=== PATIENT | female | born 1945 | race Caucasian/White ===

== ENCOUNTER → 2019-02-06 | Outpatient (CLI) | payer MEDICARE, OTHER ==
--- NOTE | 2019-02-06 19:10 | Diagnostic Imaging Report ---
EXAM: Renal Ultrasound INDICATION: Recurrent UTI. COMPARISON: None TECHNIQUE: Transverse and longitudinal images of the kidneys and bladder were obtained. FINDINGS: Right Kidney: Size: 11.5 x 4.2 x 4.3 cm Echogenicity: Normal Parenchymal thickness: Normal. 1.3 cm. Collecting system: No hydronephrosis Stones: None Cyst/Mass: 1.2 x 0.6 x 1.7 cm simple cyst in the interpolar region. Left Kidney: Size: 6.0 x 3.4 x 2.8 cm Echogenicity: Normal Parenchymal thickness: Normal. 1.0 cm. Areas of questionable scarring. Collecting system: No hydronephrosis Stones: None Cyst/Mass: 1.0 x 1.2 x 1.0 cm simple cyst in the inferior pole. Bladder: Normal IMPRESSION: Left kidney smaller than the right kidney with areas of scarring, likely related to recurrent infection. Signed by: Dr. Shekhar Seth M.D. on 02/06/2019 7:06 PM
== END ==
LOC: US 13:26
PROVIDERS: ATTEND Urology
DX: N39.0 Urinary tract infection, site not specified (principal)
CPT/HCPCS: 76770

== ENCOUNTER 2019-11-02 08:55 | Inpatient (IN) | payer MEDICARE, OTHER ==
[~2019-11-02] VITALS: Ht 167.6 cm; Wt 67.1 kg
--- OUTSIDE RECORDS SUMMARY | 2019-11-02 08:59 | XMS REPORT ---
Author Author [facility] Address Unknown Phone Unavailable Care Team Providers Care Fire Alarm Repairer Name Role Phone Kalyn REED Unavailable Unavailable Problems This patient has no known problems. Allergies, Adverse Reactions, Alerts This patient has no known allergies or adverse reactions. Medications This patient has no known medications. Encounters Start Date/Time End Date/Time Encounter Type Admission Type Attending [facility] Care Facility Care Department Encounter ID 2019-05-04 22:14:00 2019-05-04 22:14:00 Emergency E [id number] 2019-04-08 19:51:00 2019-04-08 19:51:00 Outpatient [id number] Results Test Description Test Time Test Comments Text Results Atomic Results Result Comments US RENAL RETROPERITONEAL COMP 2019-02-06 19:01:00 [place] [address] Patient Name: RENEE OCHOA MR #: [id number] : 1945 Age/Sex: 73/F Req #: [id number] Adm Physician: Ordered by: YOSELIN REED MD Report #: [id number] Location: Room/Bed: Procedure: [id number] US/US RENAL RETROPERITONEAL COMP Exam Date: 02/06/19 Exam Time: 1421 REPORT STATUS: Signed EXAM: Renal Ultrasound INDICATION: Recurrent UTI. COMPARISON: None TECHNIQUE: Transverse and longitudinal images of the kidneys and bladder were obtained. FINDINGS: Right Kidney: Size: 11.5 x 4.2 x 4.3 cm Echogenicity: Normal Parenchymal thickness: Normal. 1.3 cm. Collecting system: No hydronephrosis Stones: None Cyst/Mass: 1.2 x 0.6 x 1.7 cm simple cyst in the interpolar region. Left Kidney: Size: 6.0 x 3.4 x 2.8 cm Echogenicity: Normal Parenchymal thickness: Normal. 1.0 cm. Areas of questionable scarring. Collecting system: No hydronephrosis Stones: None Cyst/Mass: 1.0 x 1.2 x 1.0 cm simple cyst in the inferior pole. Bladder: Normal IMPRESSION: Left kidney smaller than the right kidney with areas of scarring, likely related to recurrent infection. Signed by: Dr. Shan Seth M.D. on 02/06/2019 7:06 PM Dictated By: SHAN SETH MD 05 Transcribed By: PAULA on 02/06/191905 COPY TO: YOSELIN REED MD
--- OUTSIDE RECORDS SUMMARY | 2019-11-02 08:59 | XMS REPORT | Summary of Care ---
Author Author DARÍO JACOBS M.D. Organization Unknown Address [facility] Phone Unavailable Care Team Providers Care Mounter [employer]os Name Role Phone DARÍO JACOBS M.D. Unavailable Unavailable VIET VERDIN, DARRICK Unavailable Unavailable ROBINSON VERDIN, ONDINA Almeida Unavailable Unavailable TINO VERDIN MA, LUZ De Jesus Unavailable Unavailable Darío Jacobs MD Unavailable Unavailable Unavailable Unavailable Functional Status Name Dates Details Functional status health issues are not documented Status: Name Dates Details Cognitive status health issues are not documented Status: Problems Name Dates Details Primary localized osteoarthritis of left pelvic region and thigh (715.15, M16.12) Status: Active Acute hip pain (719.45, M25.559) Status: Active Artificial joint pain (996.77, T84.84XA) Status: Active History of knee replacement (V43.65, Z96.659) Status: Active Femoral neck fracture (820.8, S72.009A) Status: Active History of hip replacement (V43.64, Z96.649) Status: Active S/P hardware removal (V45.89, Z98.890) Status: Active Aftercare following joint replacement (V54.81, Z47.1) Status: Active Asymmetric SNHL (sensorineural hearing loss) (389.16, H90.5) Status: Active Closed fracture of neck of right femur with routine healing, subsequent encounter (V54.13, S72.001D) Status: Active Right hip pain (719.45, M25.551) Status: Active Presence of right artificial hip joint (V43.64, Z96.641) Status: Active Closed fracture of proximal end of right femur, initial encounter (820.8, S72.001A) Status: Active Medications Name Dates Details Calcium TABS Active Vitamin D TABS * Refills: 0 Active Vitamin B-1 TABS * Refills: 0 Active Vitamin C TABS * Refills: 0 Active Cranberry CAPS * Refills: 0 Active Aspirin 325 MG Oral Tablet TAKE 1 TABLET TWICE DAILY for 6 weeks * Quantity: 84 Refills: 0 DARÍO JACOBS M.D. * Start : 23-Jun-2015 Active Metoprolol Tartrate TABS * Refills: 0 Active Meclizine HCl TABS * Refills: 0 Active Promethazine HCl - 25 MG Oral Tablet TAKE 1 TABLET EVERY 4 TO 6 HOURS NEEDED FOR NAUSEA. * Quantity: 40 Refills: 0 DARÍO JACOBS M.D. * Start : 24-May-2019 Active Allergies and Adverse Reactions Name Dates Details Ambien (Allergy) Status: Active fentanyl (Allergy) Status: Active TETANUS (Allergy) Status: Active Past Medical History Name Dates Details History of arthritis (V13.4, Z87.39) Status: Resolved History of hay fever (V12.69, Z87.09) Status: Resolved History of infection (V12.00, Z86.19) Status: Resolved History of low back pain (V13.59, Z87.39) Status: Resolved History of pneumonia (V12.61, Z87.01) Status: Resolved History of S/P hardware removal (V45.89, Z98.890) Status: Resolved Procedures Procedure Dates Details History of Section Completed History of Knee Surgery Completed History of Hip Surgery Completed Immunization Name Dates Details Immunizations not documented Family History Name Dates Details Family history of malignant neoplasm (V16.9, Z80.9) Status: Active Family history of Status: Active Social History Name Dates Details - Status: Name Dates Details Smoker. current status unknown Vital Signs Date Test Result Details No Known Vitals to report Results Date Description Value Details Results not documented Plan of Care Name Dates Details Planned Observations Planned Goals not documented Planned Encounters Appointment; DARÍO JACOBS M.D. On: 18-Sep-2019 13:15 Interventions Provided Labs/Procedures/Imaging* [U] XRAY HIP UNILATERAL MIN 2 VWS RIGHT 93910; Done: 26 Jun 2019 Instructions* Patient Specific Education Given; Done: 26 Jun 2019 Plan* The patient has done well with protected weightbearing. I would like her to continue with this for 2 more months. I will see her at the time of the new x-ray. We will likely transition her tello assist device and may put her in physical therapy. * Patient Education/Instructions: * Patient Education Provided * Reassurance * Counseling Provided - Discussed with Family/Patient * Family/Patient given opportunity to ask questions. * Family/Patient Verbalized Understanding. * Family/Patient informed will continue to monitor. * Follow Up: * Return to the clinic in 2 months or as needed. * x-ray(s) needed at next visit. * X-rays to be completed at next visit: Hip * Hip Xrays: AP and lateral, AP pelvis view of the right hip. Instructions Name Dates Details Instructions not documented Encounters Appointment; TAY DURAN Encounter Diagnosis: Problem not documented On: 01-Apr-2019 13:30 Appointment; ONDINA BOWERS M.D. Encounter Diagnosis: Problem not documented On: 01-Apr-2019 14:00 Appointment; DARÍO JACOBS M.D. Encounter Diagnosis: Problem not documented On: 24-May-2019 9:15 Appointment; DARÍO JACOBS M.D. Encounter Diagnosis: Problem not documented On: 29-May-2019 13:00 Appointment; DARÍO JACOBS M.D. Encounter Diagnosis: Problem not documented On: 26-Jun-2019 11:00
[2019-11-02] MEDS ORDERED: SODIUM CHLORIDE 0.9% 1000ML 1,000 ML IV STA (09:16)
[2019-11-02 09:42] LABS: BASOPHILS % 0.1 % (0.0-1.0); EOSINOPHILS # (AUTO) 0.1 (0.0-0.4); EOSINOPHILS % 0.7 % (0.0-6.0); HEMATOCRIT 38.5 % (34.2-44.1); HEMOGLOBIN 13.3 g/dL (12.0-16.0); LYMPHOCYTES # (AUTO) 1.9 (1.0-3.2); LYMPHOCYTES % 17.3 % (18.0-39.1); MEAN CORPUSCULAR HEMOGLOBIN 36.2 pg (28-32); MEAN CORPUSCULAR HGB CONC 34.5 g/dL (31-35); MEAN CORPUSCULAR VOLUME 104.9 fL (81-99); MONOCYTES # (AUTO) 0.5 (0.2-0.8); MONOCYTES % 4.2 % (4.4-11.3); NEUTROPHILS # (AUTO) 8.4 (2.1-6.9); NEUTROPHILS % 77.3 % (38.7-80.0); PLATELET COUNT 247 x10e3/uL (140-360); RED BLOOD COUNT 3.67 x10e6/uL (3.6-5.1); RED CELL DISTRIBUTION WIDTH 13.2 % (11.7-14.4)
[2019-11-02 09:48] LABS: INR 0.8; PROTHROMBIN TIME 11.5 seconds (11.9-14.5)
[2019-11-02 09:53] LABS: BILIRUBIN,URINE NEGATIVE (NEGATIVE); CLARITY,URINE CLEAR (CLEAR); COLOR,URINE YELLOW (YELLOW); KETONES,URINE NEGATIVE (NEGATIVE); LEUKOCYTE ESTERASE ,URINE NEGATIVE (NEGATIVE); NITRITE,URINE NEGATIVE (NEGATIVE); PROTEIN,URINE DIPSTICK NEGATIVE (NEGATIVE); URINE UROBILINOGEN 0.2 mg/dL (0.2 - 1)
[2019-11-02 09:54] LABS: AMPHETAMINES SCREEN,URINE NEGATIVE (NEGATIVE); BENZODIAZEPINES SCREEN,URINE NEGATIVE (NEGATIVE); PHENCYCLIDINE SCREEN,URINE NEGATIVE (NEGATIVE)
[2019-11-02 09:59] LABS: ALBUMIN 3.3 g/dL (3.5-5.0); ANION GAP 17.1 mmol/L (8-16); CALCIUM 10.1 mg/dL (8.4-10.2); CREATININE, SERUM 0.96 mg/dL (0.57-1.11); MAGNESIUM 1.6 MG/DL (1.3-2.1); POTASSIUM 4.1 mmol/L (3.5-5.1)
[2019-11-02 10:00] LABS: PARTIAL THROMBOPLASTIN TIME 30.9 seconds (23.8-35.5)
[2019-11-02 10:08] LABS: BACTERIA,URINE FEW /HPF; EPITHELIAL CELLS,URINE FEW /LPF; RBC,URINE 0-5 /HPF (0-5); WBC,URINE (MAN) 0-5 /HPF (0-5)
--- NOTE | 2019-11-02 10:17 | Diagnostic Imaging Report ---
EXAMINATION: CT of the lumbar spine HISTORY: Bilateral lower extremity weakness since yesterday. COMPARISON: None available TECHNIQUE: Multidetector helical axial images were obtained without contrast from L1 to S1. The images were reconstructed using bone and soft tissue algorithms and were viewed in axial, sagittal, and coronal planes. Dose modulation, iterative reconstruction, and/or weight based adjustment of the mA/kV was utilized to reduce the radiation dose to as low as reasonably achievable. FINDINGS: Alignment: Mild dextroscoliosis centered at L4-5. Mild right lateral spondylolisthesis at L4-5. Minimal anterolisthesis at L2-3 and L3-L4. Vertebral bodies: Diffuse decreased bone marrow density, otherwise normal height, normal acute displaced fractures. Shallow Schmorl's nodes T12-L2.. Paraspinal muscles: Posterior paraspinal musculature atrophy. Possible small scars in the left kidney.. Intervertebral disks: Decreased disc height, symmetric and asymmetric disc bulges and vacuum phenomena from T12-L1 to L5-S1. L1-L2: Disc bulge and small central disc protrusion, ligamenta flava thickening and facet arthrosis. Mild canal and moderate foraminal stenoses mainly in the right side. L2-L3: Spondylosis, ligamenta flava thickening and facet arthroses. Mild spinal canal and right foraminal narrowing. L3-L4: Spondylosis, ligamenta flava thickening and facet arthrosis. Mild canal and moderate foraminal stenosis on the left side. L4-L5: Spondylosis, ligamenta flava thickening and facet arthrosis. Moderate canal and moderate foraminal stenosis. L5-S1: Spondylosis and facet arthrosis. Mild left and moderate right foraminal stenosis. Sacrum: Partially visualized age-indeterminate probably chronic minimally displaced fracture of the S3 vertebrae. IMPRESSION: 1. No acute lumbar spine fractures or dislocations. 2. Diffuse osteoporosis. 3. Multilevel chronic degenerative canal and foraminal stenoses are described. 4. Partially visualized age-indeterminate likely chronic sacral fracture, correlation with physical examination for point of tenderness is recommended, comparison to prior studies if available is advised, otherwise a pelvic CT without contrast is recommended for further evaluation. Note is made of acute traumatic thecal sac/cauda equina, vascular or ligamentous injury cannot adequately be assessed with CT. Signed by: Dr. Ana Maria Leon M.D. on 11/02/2019 10:13 AM
[2019-11-02 10:19] LABS: CREATINE KINASE MB 2.8 ng/mL (0-5.0); THYROID STIMULATING HORMONE 0.961 uIU/mL (0.350-4.940)
[2019-11-02 10:20] LABS: ERYTHROCYTE SEDIMENTATION RATE 23 mm/hr (0-20)
--- NOTE | 2019-11-02 10:23 | Diagnostic Imaging Report ---
EXAMINATION: Head and cervical spine CT without contrast. HISTORY: Generalized weakness, vertigo since yesterday COMPARISON: None available TECHNIQUE: Multidetector axial images were obtained without contrast from the foramen magnum to the vertex and through the cervical spine. The images were reconstructed using brain and bone algorithms. Thin section brain images were reformatted into coronal and sagittal planes. Dose modulation, iterative reconstruction, and/or weight based adjustment of the mA/kV was utilized to reduce the radiation dose to as low as reasonably achievable. HEAD CT FINDINGS: Skull/scalp: No lytic or blastic lesions. No fractures. Parenchyma: Few scattered and periventricular white matter hypodensities, most likely age related minimal chronic microvascular ischemic changes. No mass, hemorrhage or CT evidence of acute vascular insult. Brain volume: Normal for age. Ventricles: No hydrocephalus or displacement. Arteries: No density suggestive of thrombus. Dural sinuses: No abnormal density. Extra-axial spaces: No abnormal density. Foramen magnum: No mass, Chiari malformation, or basilar invagination. Sella: No obvious mass. Paranasal/mastoid sinuses: Imaged portions unremarkable. CERVICAL SPINE CT FINDINGS: Alignment:Normal alignment and lordosis. Soft tissues: Normal. Vertebrae: Normal height and density. No acute fracture, infection or neoplasm. Degenerative changes: C1-C2: Normal C2-C3: Normal C3-C4: Small disc osteophyte complex formation and uncovertebral and facet arthrosis. Minimal left foramina narrowing. C4-C5: Small disc osteophyte complex formation, mild uncovertebral and facet hypertrophy. No canal or foraminal stenosis. C5-C6: Asymmetric right disc osteophyte complex formation, uncovertebral and facet arthrosis. Moderate right and mild left foraminal stenosis. Minimal canal narrowing. C6-C7: Asymmetric left disc osteophyte complex formation, bilateral uncovertebral and to a lesser extent facet arthrosis. Mild right and moderate left foraminal stenosis. C7-T1: Minimal anterolisthesis, otherwise no abnormalities. IMPRESSION: Head CT: 1. No acute abnormalities, particularly no hemorrhage or acute cortical infarct. 2. Mild age-related chronic microvascular ischemic changes. Cervical spine CT: 1. No acute fractures or dislocations. 2. Chronic degenerative changes as described. Note: Acute post traumatic spinal cord, vascular or ligamentous injury cannot adequately be assessed with CT. Signed by: Dr. Ana Maria Leon M.D. on 11/02/2019 10:20 AM
--- NOTE | 2019-11-02 10:29 | Diagnostic Imaging Report ---
EXAMINATION: CHEST SINGLE (PORTABLE) INDICATION: Bilateral lower extremity weakness. COMPARISON: None FINDINGS: TUBES and LINES: None. LUNGS: Lungs are well inflated. There is consolidative opacity within the right lower lung. No evidence of pulmonary edema. PLEURA: No pleural effusion or pneumothorax. Right-sided likely skinfold. HEART AND MEDIASTINUM: The cardiomediastinal silhouette is unremarkable. BONES AND SOFT TISSUES: No acute osseous abnormality. UPPER ABDOMEN: No free air under the diaphragm. IMPRESSION: Consolidative opacity within the right lower lung, which may reflect pneumonia in the appropriate clinical setting. Recommend follow-up chest radiograph in 6-8 weeks to assess for resolution. Signed by: Dr. Landen Sanchez MD on 11/02/2019 10:26 AM
[2019-11-02] MEDS ORDERED: THIAMINE HCL INJ 100 MG/ML 2ML VIAL IV ONE (10:45)
[2019-11-02] MEDS ORDERED: MULTIVITAMINS/MINERALS TAB PO ONE ×2 (10:45→12:00)
--- NOTE | 2019-11-02 12:03 | Diagnostic Imaging Report ---
EXAM: CT Chest without contrast INDICATION: Query pneumonia. COMPARISON: Chest radiograph 11/02/2019. TECHNIQUE: Chest was scanned utilizing a multidetector helical scanner from the lung apex through the level of the adrenal glands without administration of IV contrast. Coronal and sagittal reformations were obtained. Routine protocol was performed. IV CONTRAST: None. RADIATION DOSE: Total DLP: 955.2 mGy*cm Estimated effective dose: (DLP x 0.014 x size factor) mSv COMPLICATIONS: None FINDINGS: LINES/ TUBES: None. LUNGS AND AIRWAYS: There is a rounded masslike consolidative opacity within the right lower lobe, measuring up to 5.7 cm. There are curvilinear lucencies within this opacity, likely represent focal bronchiectasis. There is an adjacent nodular opacity in the right lower lobe measuring 2.1 cm. There are bilateral peripheral interstitial opacities. Scattered 1 to 2 mm peripheral groundglass nodular opacities. There are mild paraseptal emphysematous changes of the lungs. Prominent septated cyst in the right upper lobe, measuring up to 3.6 cm, which may reflect sequela of prior infection. Biapical parenchymal opacity, suggestive of prior granulomatous disease. There is a 0.8 cm ground glass nodular opacity in the dependent right upper lobe on series 3, image 56. PLEURA: The pleural spaces are clear. HEART AND MEDIASTINUM: The thyroid gland is normal. Mildly enlarged 1.6 cm subcarinal lymph node. Coronary atherosclerosis. Moderate atherosclerosis of the thoracic aorta and branch vessels. No cardiomegaly or pericardial effusion. UPPER ABDOMEN: Limited non-contrast views of the upper abdomen are unremarkable. BONES: No acute osseous abnormality. Old healed right lower rib fracture. SOFT TISSUES: Unremarkable. IMPRESSION: Masslike 5.7 cm consolidation in the right lower lobe with adjacent to 2.1 cm nodular opacity. Findings may represent malignancy versus focal pneumonia. Nonspecific mildly enlarged 1.6 cm subcarinal lymph node. Recommend close interval follow-up chest CT in 3 months for further evaluation. If there is low clinical concern for pneumonia, then a PET-CT or biopsy is suggested. Mild paraseptal emphysematous changes. Scattered groundglass nodular opacities, which may infectious or inflammatory. These can be assessed on follow-up CT. Mild peripheral interstitial opacities, suggestive of pulmonary fibrosis. Signed by: Dr. Landen Sanchez MD on 11/02/2019 11:59 AM
[2019-11-02] MEDS: CEFTRIAXONE SOD 1 GM/NS 50 ML 50 ML IV SCH ×2 (12:09→23:29)
--- NOTE | 2019-11-02 12:11 | Diagnostic Imaging Report ---
EXAM: CT Pelvis WITHOUT contrast INDICATION: Fall, possible sacral fracture COMPARISON: Lumbar spine CT 11/02/2019. TECHNIQUE: Pelvis were scanned utilizing a multidetector helical scanner from the iliac crest to the pubic symphysis without administration of IV contrast. Coronal and sagittal reformations were obtained. Routine protocol was performed. IV CONTRAST: None. ORAL CONTRAST: None RADIATION DOSE: Total DLP: 955.2. mGy*cm Estimated effective dose: (DLP x 0.015 x size factor) mSv COMPLICATIONS: None FINDINGS: BONES: Again noted is a well-corticated nondisplaced, likely chronic fracture of the S3 vertebral body (axial series 8, image 47, and coronal series 901, image 69). No evidence of malalignment. Please refer to the same day CT for details of lumbar spine findings. Partially seen right total hip arthroplasty with intact visualized hardware. SOFT TISSUES: Mild subcutaneous edema in the left lateral thigh. LINES and TUBES: None. GI TRACT: Partially visualized. No abnormal distention, wall thickening, or evidence of bowel obstruction. Appendix is normal. Fatty infiltration to the wall of the cecum, sigmoid colon, and rectum may reflect sequela of prior inflammation. Sigmoid colonic diverticulosis without CT evidence of diverticulitis. PELVIC ORGANS/BLADDER: Unremarkable. LYMPH NODES: No lymphadenopathy. VESSELS: Extensive atherosclerotic calcifications of the distal abdominal aorta and iliac arteries. PERITONEUM / RETROPERITONEUM: No free air or fluid. IMPRESSION: Well-corticated, nondisplaced, likely chronic fracture of the S3 vertebral body. No overlying soft tissue edema. Suggest correlation with point tenderness. Mild subcutaneous edema in the left lateral thigh. Sigmoid colonic diverticulosis without CT evidence of diverticula disease. Signed by: Dr. Landen Sanchez MD on 11/02/2019 12:08 PM
[2019-11-02] MEDS: METRONIDAZOLE 500MG/NS 100ML 100 ML IV SCH ×2 (12:50→20:48)
[2019-11-02] MEDS ORDERED: DEXTROSE 5%/0.9% SOD CHL 1,000 ML IV ONE (13:00)
--- NOTE | 2019-11-02 13:11 | NUR ---
LUNCH MEAL TRAY ORDERED
[2019-11-02] MEDS: AZITHROMYCIN 500MG/NS 250 ML 250 ML IV SCH (14:09)
--- NOTE | 2019-11-02 14:11 | NUR ---
received report from CIGARETTE MACHINES MECHANIC; awaiting arrival of pt to unit.
--- NOTE | 2019-11-02 14:20 | NUR ---
pt arrived on unit, awake, alert, no signs of distress. will continue to monitor.
[2019-11-02 14:28] VITALS: BP 134/66
[2019-11-02 14:31] VITALS: BP 134/66
[2019-11-02 16:10] VITALS: BP 161/72
[2019-11-02] MEDS ORDERED: MECLIZINE HCL12.5 MG PO (16:15)
[2019-11-02] MEDS ORDERED: METOPROLOL SUCC25 MG PO (16:15)
--- NOTE | 2019-11-02 17:56 | NUR ---
pt accidentally pulled out her IV; will place another one.
[2019-11-02] MEDS: ONDANSETRON HCL INJ 2MG/ML 2ML 2 MG/ML VIAL IV PRN ×2 (18:22→23:54)
[2019-11-02 19:12] LABS: CREATINE KINASE MB 2.3 ng/mL (0-5.0)
--- NOTE | 2019-11-02 19:13 | NUR ---
Received bedside report from day nurse. Patient resting in bed, no s/s of distress at this time. All safety measures in place. Will continue to monitor.
[2019-11-02 19:34] VITALS: BP 122/58
--- NOTE | 2019-11-02 20:01 | NUR ---
Patient c/o back pain, saying that she cannot take ibuprofen because it gives her an upset stomach. Says that she usually takes Tylenol at home. Called contract graphic designer provider for Dr. Sanchez and obtained orders for Tylenol.
[2019-11-02] MEDS: ACETAMINOPHEN 325 MG TAB PO PRN (20:48)
[2019-11-02 21:28] VITALS: BP 122/58
[2019-11-03] VITALS (7 sets, daily range): BP systolic 111–139; BP diastolic 60–81
--- NOTE | 2019-11-03 02:31 | NUR ---
Third Q8 cardiac markers drawn as ordered and dropped off at lab.
[2019-11-03] MEDS: ACETAMINOPHEN 325 MG TAB PO PRN ×2 (03:11→09:26)
[2019-11-03 03:16] LABS: CREATINE KINASE MB 1.2 ng/mL (0-5.0)
[2019-11-03] MEDS: METRONIDAZOLE 500MG/NS 100ML 100 ML IV SCH ×3 (05:17→21:05)
[2019-11-03 06:21] LABS: BASOPHILS % 0.4 % (0.0-1.0); EOSINOPHILS # (AUTO) 0.2 (0.0-0.4); EOSINOPHILS % 2.5 % (0.0-6.0); HEMATOCRIT 35.2 % (34.2-44.1); HEMOGLOBIN 12.1 g/dL (12.0-16.0); LYMPHOCYTES # (AUTO) 1.5 (1.0-3.2); LYMPHOCYTES % 19.1 % (18.0-39.1); MEAN CORPUSCULAR HEMOGLOBIN 36.3 pg (28-32); MEAN CORPUSCULAR HGB CONC 34.4 g/dL (31-35); MEAN CORPUSCULAR VOLUME 105.7 fL (81-99); MONOCYTES # (AUTO) 0.6 (0.2-0.8); NEUTROPHILS # (AUTO) 5.5 (2.1-6.9); NEUTROPHILS % 69.7 % (38.7-80.0); PLATELET COUNT 192 x10e3/uL (140-360); RED BLOOD COUNT 3.33 x10e6/uL (3.6-5.1); RED CELL DISTRIBUTION WIDTH 13.3 % (11.7-14.4)
[2019-11-03 06:47] LABS: ALANINE AMINOTRANSFERASE 6 IU/L (0-55); ALBUMIN 2.6 g/dL (3.5-5.0); ALKALINE PHOSPHATASE 83 IU/L (40-150); ANION GAP 13.8 mmol/L (8-16); BLOOD UREA NITROGEN 13 mg/dL (7-26); BUN/CREATININE RATIO 16 (6-25); CALCIUM 9.3 mg/dL (8.4-10.2); CARBON DIOXIDE 23 mmol/L (22-29); CHLORIDE 105 mmol/L (98-107); CHOL/HDL RATIO 2.4 (3.0-3.6); CHOLESTEROL 139 MD/DL (0-199); CREATINE KINASE 59 IU/L (29-168); CREATININE, SERUM 0.82 mg/dL (0.57-1.11); EST GLOMERULAR FILTRATION RATE > 60 ML/MIN (60-); GLUCOSE 143 mg/dL (74-118); HDL CHOLESTEROL 59 MG/DL (40-60); LDL CHOLESTEROL 68 MG/DL (60-130); MAGNESIUM 1.4 MG/DL (1.3-2.1); POTASSIUM 3.8 mmol/L (3.5-5.1); SODIUM 138 mmol/L (136-145); TRIGLYCERIDES 62 MG/DL (0-149)
--- NOTE | 2019-11-03 07:04 | NUR ---
walking rounds completed, change of shift report received from night shift supervisor RN. pt in stable condition.
[2019-11-03] MEDS: ONDANSETRON HCL INJ 2MG/ML 2ML 2 MG/ML VIAL IV PRN ×3 (07:23→21:04)
[2019-11-03] MEDS: AZITHROMYCIN 500MG/NS 250 ML 250 ML IV SCH (08:13)
[2019-11-03] MEDS: MULTIVITAMINS/MINERALS TAB PO SCH (08:14)
[2019-11-03] MEDS: THIAMINE HCL INJ 100 MG/ML 2ML VIAL IV SCH (08:16)
[2019-11-03] MEDS: PANTOPRAZOLE 40 MG 10ML VIAL IV SCH (08:16)
[2019-11-03] MEDS: CEFTRIAXONE SOD 1 GM/NS 50 ML 50 ML IV SCH ×2 (12:05→23:45)
[2019-11-03] MEDS: IBUPROFEN 600 MG TAB PO PRN (15:46)
[2019-11-03] MEDS ORDERED: HYDRALAZINE HCL 20 MG/ML VIAL IV PRN (19:30)
[2019-11-03] MEDS ORDERED: MECLIZINE HCL 12.5 MG TAB PO PRN (19:30)
--- NOTE | 2019-11-03 20:00 | NUR ---
INITIAL ASSESSMENT COMPLETE, PT IN BED, LEFT HAD RED FROM IV MEDS, NO SWELLING NOTED, BSC AT BEDSIDE, CALL LIGHT IN REACH, NO SIGNS OF DISTRESS OR DETOX, VS STABLE
[2019-11-03] MEDS ORDERED: SODIUM CHLORIDE 0.9% 500ML 500 ML ONE (22:30)
[2019-11-03] MEDS: ALBUTEROL/IPRATROPIUM 3 ML NEB NEB SCH (23:10)
[2019-11-04] VITALS (8 sets, daily range): BP systolic 128–150; BP diastolic 59–70
[2019-11-04] MEDS: ALBUTEROL/IPRATROPIUM 3 ML NEB NEB SCH ×3 (03:02→11:00)
[2019-11-04] MEDS: METRONIDAZOLE 500MG/NS 100ML 100 ML IV SCH ×3 (06:00→21:30)
[2019-11-04 07:00] LABS: BASOPHILS % 0.1 % (0.0-1.0); EOSINOPHILS # (AUTO) 0.4 (0.0-0.4); EOSINOPHILS % 4.8 % (0.0-6.0); HEMATOCRIT 35.5 % (34.2-44.1); HEMOGLOBIN 11.8 g/dL (12.0-16.0); LYMPHOCYTES # (AUTO) 1.3 (1.0-3.2); LYMPHOCYTES % 15.5 % (18.0-39.1); MEAN CORPUSCULAR HEMOGLOBIN 35.6 pg (28-32); MEAN CORPUSCULAR HGB CONC 33.2 g/dL (31-35); MEAN CORPUSCULAR VOLUME 107.3 fL (81-99); MONOCYTES # (AUTO) 0.6 (0.2-0.8); MONOCYTES % 7.3 % (4.4-11.3); NEUTROPHILS % 71.9 % (38.7-80.0); PLATELET COUNT 192 x10e3/uL (140-360); RED BLOOD COUNT 3.31 x10e6/uL (3.6-5.1); RED CELL DISTRIBUTION WIDTH 13.2 % (11.7-14.4)
[2019-11-04 07:27] LABS: ANION GAP 10.9 mmol/L (8-16); BLOOD UREA NITROGEN 12 mg/dL (7-26); BUN/CREATININE RATIO 16 (6-25); CALCIUM 9.8 mg/dL (8.4-10.2); CARBON DIOXIDE 25 mmol/L (22-29); CHLORIDE 102 mmol/L (98-107); CREATININE, SERUM 0.76 mg/dL (0.57-1.11); EST GLOMERULAR FILTRATION RATE > 60 ML/MIN (60-); GLUCOSE 109 mg/dL (74-118); MAGNESIUM 1.3 MG/DL (1.3-2.1); PHOSPHORUS 2.4 MG/DL (2.3-4.7); POTASSIUM 3.9 mmol/L (3.5-5.1); SODIUM 134 mmol/L (136-145)
--- NOTE | 2019-11-04 07:35 | NUR ---
PATIENT SITTING UP IN BED WATCHING TV, NO DISTRESS NOTED. BED I N LOWER POSITION, CALL LIGHT AT REACH.
[2019-11-04] MEDS: METOPROLOL SUCCINATE 25 MG TAB XL PO SCH ×2 (09:00→17:00)
[2019-11-04] MEDS: GUAIFENESIN 600MG/DEXTROMETHORPHAN 30MG TABSR PO SCH ×2 (09:48→17:06)
[2019-11-04] MEDS: MULTIVITAMINS/MINERALS TAB PO SCH (09:48)
[2019-11-04] MEDS: PANTOPRAZOLE 40 MG 10ML VIAL IV SCH (09:48)
[2019-11-04] MEDS: AZITHROMYCIN 500MG/NS 250 ML 250 ML IV SCH (09:48)
[2019-11-04] MEDS: THIAMINE HCL INJ 100 MG/ML 2ML VIAL IV SCH (09:48)
[2019-11-04] MEDS: ONDANSETRON HCL INJ 2MG/ML 2ML 2 MG/ML VIAL IV PRN ×3 (11:15→23:49)
[2019-11-04] MEDS: ACETAMINOPHEN 325 MG TAB PO PRN ×2 (11:15→23:49)
[2019-11-04] MEDS: CEFTRIAXONE SOD 1 GM/NS 50 ML 50 ML IV SCH ×2 (13:20→23:45)
[2019-11-04] MEDS ORDERED: MAGNESIUM SULFATE 2GM/50ML 50 ML IV ONE (15:00)
--- NOTE | 2019-11-04 15:18 | NUR ---
PATIENT AMBULATED IN HALLWAY WITH PHYSICAL THERAPY. NO DISTRESS NOTED. BACK IN BED WITH CALL LIGHT AT REACH.
[2019-11-04] MEDS ORDERED: LOPERAMIDE HCL 2 MG CAP PO ONE (16:15)
[2019-11-04] MEDS ORDERED: LOPERAMIDE HCL 2 MG CAP PO PRN (16:15)
--- NOTE | 2019-11-04 16:22 | Consultation ---
DATE OF CONSULTATION: Pulmonary Critical Care Consultation CHIEF COMPLAINT: Lung mass. HISTORY OF PRESENT ILLNESS: The patient is a 73-year-old woman. She has a history of vertigo and prior falls. She fell several years ago and fractured hip and ribs. She fell last summer and fractured another rib. Since falling over the summer, she has had decreased appetite. She has lost about 15 pounds. She came to the ER. She had a CT scan of her abdomen and pelvis, head, and chest after falling. The CT scan of the chest showed a possible right lower lobe mass and a subcarinal lymph node. The patient denies any fevers. She has minimal cough. She does not have phlegm production. She has had pneumonia in the past once at age 2 and once in 2017, but has never had tuberculosis or any other lung infections. PAST MEDICAL HISTORY: 1. Vertigo. 2. Atrial fibrillation. PAST SURGICAL HISTORY: 1. Status post right hip surgery. 2. History of . 3. History of prior rib fractures. SOCIAL HISTORY: The patient smokes about half a pack a day. She does drink socially. She previously worked as a dental hygienist. FAMILY HISTORY: Father from lung cancer. ALLERGIES: THE PATIENT IS ALLERGIC TO TETANUS VACCINATIONS WELL FENTANYL. REVIEW OF SYSTEMS: The patient has no fever or headache. She does complain of vertigo and dizziness. She has frequent falling. Chest pain is not present. She denies cough or phlegm production. She does have some weight loss. She denies any abdominal pain. There is no nausea or vomiting. She has no leg edema. PHYSICAL EXAMINATION: VITAL SIGNS: The patient is afebrile. The blood pressure is 128/60, the pulse is 89, and respiratory rate is 16. HEENT: Shows no facial swelling or erythema. CARDIAC: Reveals regular rate and rhythm with normal S1, S2. There are no murmurs or rubs heard. LUNGS: Auscultation of lungs reveals rhonchorous breath sounds bilaterally. There is no wheezing. ABDOMEN: Soft, nontender. There is no rebound or guarding. EXTREMITIES: Show no leg edema or calf tenderness. There is no cyanosis or clubbing. SKIN: Shows no rashes. NEUROLOGICAL: Shows no focal abnormalities. LABORATORY DATA: CT scan of the chest shows a 5.77 cm consolidation in the right lower lobe with an adjacent nodular opacity. There is also a 1.6 cm subcarinal lymph node. IMPRESSION: 1. Cavitary right lower lobe mass. The differential includes malignancy, anaerobic lung abscess, fungal infection or atypical mycobacterial infection. 2. Vertigo and frequent falling. 3. History of rib fractures. PLAN: 1. Proceed with CT-guided lung biopsy. I discussed this with Radiology. 2. Continue current antibiotics. 3. IV fluids. Jac Higgins MD [facility] /[id number]
[2019-11-04] MEDS: MAGNESIUM OXIDE 400 MG TAB PO SCH (17:06)
[2019-11-04] MEDS: LEVALBUTEROL HCL SOLN NEBU 0.63 MG/3 ML NEB INH SCH ×2 (19:00→23:00)
--- NOTE | 2019-11-04 19:15 | NUR ---
patient received awake, alert, lying quietly in bed. vss. no c/o pain noted. pm assessment complete. patient to be npo after midnight for lung biopsy tomorrow. patient verbalizes understanding of this. patient instructed to call for assistance when needed.
[2019-11-05] VITALS (9 sets, daily range): BP systolic 104–141; BP diastolic 55–71
[2019-11-05] MEDS: LEVALBUTEROL HCL SOLN NEBU 0.63 MG/3 ML NEB INH SCH ×6 (03:00→23:15)
--- NOTE | 2019-11-05 03:00 | NUR ---
0300 labs drawn at this time and sent to lab.
[2019-11-05 03:42] LABS: BASOPHILS % 0.2 % (0.0-1.0); EOSINOPHILS # (AUTO) 0.4 (0.0-0.4); EOSINOPHILS % 4.5 % (0.0-6.0); HEMATOCRIT 35.2 % (34.2-44.1); HEMOGLOBIN 11.9 g/dL (12.0-16.0); LYMPHOCYTES # (AUTO) 1.4 (1.0-3.2); LYMPHOCYTES % 17.1 % (18.0-39.1); MEAN CORPUSCULAR HEMOGLOBIN 35.4 pg (28-32); MEAN CORPUSCULAR HGB CONC 33.8 g/dL (31-35); MEAN CORPUSCULAR VOLUME 104.8 fL (81-99); MONOCYTES # (AUTO) 0.7 (0.2-0.8); MONOCYTES % 8.5 % (4.4-11.3); NEUTROPHILS # (AUTO) 5.8 (2.1-6.9); NEUTROPHILS % 69.5 % (38.7-80.0); PLATELET COUNT 196 x10e3/uL (140-360); RED BLOOD COUNT 3.36 x10e6/uL (3.6-5.1)
--- NOTE | 2019-11-05 03:50 | NUR ---
patient placed on continuous pulse ox as per orders on 11/02/19. no distress noted at this time.
[2019-11-05 04:15] LABS: BLOOD UREA NITROGEN 12 mg/dL (7-26); BUN/CREATININE RATIO 14 (6-25); CALCIUM 9.8 mg/dL (8.4-10.2); CARBON DIOXIDE 25 mmol/L (22-29); CHLORIDE 104 mmol/L (98-107); CREATININE, SERUM 0.83 mg/dL (0.57-1.11); EST GLOMERULAR FILTRATION RATE > 60 ML/MIN (60-); GLUCOSE 102 mg/dL (74-118); MAGNESIUM 1.9 MG/DL (1.3-2.1); PHOSPHORUS 2.8 MG/DL (2.3-4.7); SODIUM 137 mmol/L (136-145)
[2019-11-05] MEDS: METRONIDAZOLE 500MG/NS 100ML 100 ML IV SCH ×3 (05:25→22:26)
[2019-11-05] MEDS ORDERED: MECLIZINE HCL 12.5 MG TAB PO PRN (06:15)
--- NOTE | 2019-11-05 06:46 | NUR ---
patient medicated with zofran 4mg ivp for nausea at this time. cont pulse ox off per patients request.
[2019-11-05] MEDS: ONDANSETRON HCL INJ 2MG/ML 2ML 2 MG/ML VIAL IV PRN (06:47)
--- NOTE | 2019-11-05 07:00 | NUR ---
received am report and rounds done. pt is alert sitting up in bed, no s/s of distress. call light within reach and instructed pt to call RN for help.
[2019-11-05] MEDS: MAGNESIUM OXIDE 400 MG TAB PO SCH ×2 (09:00→18:01)
[2019-11-05] MEDS: METOPROLOL SUCCINATE 25 MG TAB XL PO SCH ×2 (09:00→17:00)
[2019-11-05] MEDS: MULTIVITAMINS/MINERALS TAB PO SCH (09:00)
[2019-11-05] MEDS: GUAIFENESIN 600MG/DEXTROMETHORPHAN 30MG TABSR PO SCH ×2 (09:00→18:01)
--- NOTE | 2019-11-05 09:44 | NUR ---
ST note: Order for bedside swallow eval noted. Pt NPO for procedure. Will f/u to complete eval when able.
[2019-11-05] MEDS: THIAMINE HCL INJ 100 MG/ML 2ML VIAL IV SCH (11:40)
[2019-11-05] MEDS: AZITHROMYCIN 500MG/NS 250 ML 250 ML IV SCH (11:40)
[2019-11-05] MEDS: PANTOPRAZOLE 40 MG 10ML VIAL IV SCH (11:40)
--- NOTE | 2019-11-05 12:29 | NUR ---
PER REQUEST GAVE INFORMATION ON MEALS ON WHEELS, TOOK TO ROOM, PT STATES OH, I DIDNT MEAN THAT, I JUST NEED SOMEONE TO COME COOK THE FOOD I HAVE, EDUCATED ABOUT PROVIDER SERVICES AND GAVE RESOURCES FOR ORAL, RIGHT AT HOME CARE AND VISITING ANGELS. LEFT CARD IF ANY FURTHER QUESTIONS.
[2019-11-05] MEDS ORDERED: LIDOCAINE HCL 1% LOCAL INJ 20 ML VIAL ONE (12:35)
[2019-11-05] MEDS: CEFTRIAXONE SOD 1 GM/NS 50 ML 50 ML IV SCH ×2 (14:00→23:41)
[2019-11-05] MEDS ORDERED: MIDAZOLAM HCL 2 MG/2 ML VIAL ONE (14:34)
[2019-11-05] MEDS ORDERED: FENTANYL CITRATE/PF 100MCG/2 ML INJ ONE (14:34)
--- NOTE | 2019-11-05 16:48 | Diagnostic Imaging Report ---
CT guided biopsy History: Right lower lobe cavitary mass Technique: Serial axial imaging was performed without intravenous contrast as per departmental protocol. Multiplanar images are reconstructed and reviewed when indicated. This CT examination is performed using one or more of the following dose reduction techniques: Automated exposure control, adjustment of the mA and /or kV according to patient size, and/or use of iterative reconstruction technique. Technique/findings: Written informed consent was obtained after discussing risks, benefits, and alternatives of the procedure with the patient. Patent was brought to the CT scanner and placed in prone position. Preprocedure CT images demonstrate right lower lobe mass which was started for biopsy. The right posterolateral chest wall was prepped and draped in sterile fashion. 1% lidocaine was used for local anesthesia. Using CT guidance, a 19-gauge introducer needle was advanced into the right lower lobe cavitary mass. 2 core biopsy samples were obtained using a 20-gauge biopsy needle coaxially. Adequacy was confirmed by pathology. However, as the specimens were being evaluated by pathology, the patient experienced an involuntary coughing episode. Repeat imaging demonstrates development of a small pneumothorax. The biopsy needle was removed. A temporary 5 [place] one-step catheter was placed into the right pleural space and the pneumothorax was near completely evacuated. The 5 [place] catheter was removed and a blood patch was performed. Repeat imaging 15 minutes later demonstrates stable trace pneumothorax. Impression: Technically successful CT-guided right lower lobe mass core biopsy. Post procedure images demonstrate small right-sided pneumothorax which was stable on delayed imaging. Patient remained asymptomatic and at baseline oxygen saturation. Follow-up imaging ordered. Signed by: Dr. Tee Londono MD on 11/05/2019 4:45 PM
[2019-11-05] MEDS: ACETAMINOPHEN 325 MG TAB PO PRN (18:11)
--- NOTE | 2019-11-05 18:22 | Diagnostic Imaging Report ---
EXAM: CHEST SINGLE (PORTABLE) DATE: 11/05/2019 5:36 PM INDICATION: Status post lung biopsy COMPARISON: CT guided lung biopsy from earlier 11/05/2019 FINDINGS: There is a trace right apical pneumothorax present, as noted and not significantly changed in appearance allowing for differences in technique. Opacity noted within the right lower lobe compatible with patient's known right lower lobe mass. There is no evidence for large focal consolidation or significant pleural effusion. The cardiomediastinal silhouette is within normal limits. No acute osseous abnormalities identified. IMPRESSION: Trace right apical pneumothorax as noted on and similar to the recent prior CT examination. Signed by: Dr. Tee Londono MD on 11/05/2019 6:18 PM
--- NOTE | 2019-11-05 18:39 | Progress Note ---
DATE: SUBJECTIVE: The patient is in Radiology, undergoing CT-guided lung biopsy. PHYSICAL EXAMINATION: VITAL SIGNS: Stable. CARDIAC: Regular rate and rhythm with a normal S1 and S2. LUNGS: Auscultation of lungs reveals clear breath sounds bilaterally. IMPRESSION: 1. Cavitary right lower lung mass, which may represent malignancy. 2. Vertigo and frequent falling. 3. Fifteen-pound weight loss. 4. History of prior rib fractures. PLAN: 1. Await CT-guided lung biopsy. 2. Continue IV hydration. 3. Continue antibiotics. Jac Higgins MD [facility]/MODL /[id number]
[2019-11-06] MEDS: ONDANSETRON HCL INJ 2MG/ML 2ML 2 MG/ML VIAL IV PRN ×2 (00:07→04:14)
[2019-11-06] MEDS: ACETAMINOPHEN 325 MG TAB PO PRN ×2 (00:07→05:53)
[2019-11-06] MEDS: LEVALBUTEROL HCL SOLN NEBU 0.63 MG/3 ML NEB INH SCH ×3 (03:20→11:40)
[2019-11-06 04:00] VITALS: BP 118/63
[2019-11-06 04:11] LABS: BASOPHILS % 0.2 % (0.0-1.0); EOSINOPHILS # (AUTO) 0.2 (0.0-0.4); EOSINOPHILS % 2.6 % (0.0-6.0); HEMATOCRIT 35.3 % (34.2-44.1); HEMOGLOBIN 11.9 g/dL (12.0-16.0); LYMPHOCYTES # (AUTO) 1.4 (1.0-3.2); MEAN CORPUSCULAR HEMOGLOBIN 35.8 pg (28-32); MEAN CORPUSCULAR HGB CONC 33.7 g/dL (31-35); MEAN CORPUSCULAR VOLUME 106.3 fL (81-99); MONOCYTES # (AUTO) 0.7 (0.2-0.8); MONOCYTES % 7.5 % (4.4-11.3); NEUTROPHILS % 74.3 % (38.7-80.0); PLATELET COUNT 191 x10e3/uL (140-360); RED BLOOD COUNT 3.32 x10e6/uL (3.6-5.1); RED CELL DISTRIBUTION WIDTH 13.4 % (11.7-14.4)
[2019-11-06] MEDS: IBUPROFEN 600 MG TAB PO PRN (04:15)
[2019-11-06 04:32] LABS: ANION GAP 13.8 mmol/L (8-16); BLOOD UREA NITROGEN 10 mg/dL (7-26); BUN/CREATININE RATIO 13 (6-25); CALCIUM 9.5 mg/dL (8.4-10.2); CARBON DIOXIDE 24 mmol/L (22-29); CHLORIDE 102 mmol/L (98-107); CREATININE, SERUM 0.78 mg/dL (0.57-1.11); EST GLOMERULAR FILTRATION RATE > 60 ML/MIN (60-); GLUCOSE 105 mg/dL (74-118); MAGNESIUM 1.6 MG/DL (1.3-2.1); POTASSIUM 3.8 mmol/L (3.5-5.1); SODIUM 136 mmol/L (136-145)
[2019-11-06] MEDS: METRONIDAZOLE 500MG/NS 100ML 100 ML IV SCH (05:36)
[2019-11-06] MEDS ORDERED: CEFDINIR300 MG PO (07:02)
[2019-11-06] MEDS ORDERED: MUCINEX DM ER1 EACH PO (07:02)
--- NOTE | 2019-11-06 07:02 | NUR ---
Patient is laying in bed, awake and alert. Reports feeling significantly better after incorporating Motrin in addition to Tylenol. States she is able to breath better and her headache is almost non-existing. Bed is low, wheels are locked and call light within reach. IV Antibiotic infusing, IV Patent.
[2019-11-06 07:47] VITALS: BP 113/54
[2019-11-06 08:53] VITALS: BP 113/54
--- NOTE | 2019-11-06 09:12 | NUR ---
ORDERS RECEIVED FOR HOME HEALTH; SN EVAL AND TX, PT EVAL AND TX, HSE AND EMERGENCY MEDICINE NURSE PRACTITIONER. MET W THE PT AT THE BEDSIDE 11/05/2019. PROVIDED CHOICE. CHOICE LETTER WAS SIGNED AND COPY TO PT AND COPY TO THE CHART. REFERRAL WAS FAXED TO [facility] @ OFF: [phone] / FAX: [phone].
[2019-11-06 11:14] VITALS: BP 121/56
--- NOTE | 2019-11-06 15:30 | Diagnostic Imaging Report ---
Modified Barium Swallow History: Dysphagia Comparison: None Fluoroscopic time: 1. 78 minutes Total dose (DANIEL): 2.49 mg Technique: Modified barium swallow was performed in conjunction with speech pathology. Please see separate report for further details. The patient was fed various consistencies of barium under real time fluoroscopic observation. Provided images demonstrate no evidence for subglottic tracheal aspiration. Impression: Modified barium swallow as described above. Signed by: Dr. Tee Londono MD on 11/06/2019 3:27 PM
[2019-11-06 15:47] VITALS: BP 137/64
--- NOTE | 2019-11-06 15:58 | Progress Note ---
DATE: SUBJECTIVE: The patient underwent a CT-guided lung biopsy yesterday. She is not complaining of any pain or cough. She has no congestion. PHYSICAL EXAMINATION: VITAL SIGNS: Stable. HEENT: Shows no facial swelling or erythema. CARDIAC: Reveals a regular rate and rhythm with normal S1 and S2. There are no murmurs or rubs heard. LUNGS: Auscultation of lungs reveals clear breath sounds bilaterally. There is no wheezing. ABDOMEN: Soft, nontender. There is no rebound or guarding. EXTREMITIES: Show no leg edema or calf tenderness. IMPRESSION: 1. Cavitary right lower lung mass, which may represent malignancy. 2. Vertigo and frequent falling. PLAN: 1. The patient is awaiting discharge. 2. Follow up in [address] Higgins to review biopsy results. Jac Higigns MD [facility]/MODL /[id number]
--- NOTE | 2019-11-06 15:58 | NUR ---
patient discharged home, prescription given, IV canula removed with tip intact, no ss of infiltration noted, at bed side, denies any pain , no distress noted, transported via wheelchair to [facility]
--- NOTE | 2019-11-08 04:47 | Discharge Summary ---
ADMISSION DIAGNOSES: Status post fall, community-acquired pneumonia, present on admission, alcohol intoxication, ambulatory dysfunction, lung mass, dizziness with history of vertigo, active smoker. DISCHARGE DIAGNOSES: Status post fall, community-acquired pneumonia, present on admission, alcohol intoxication, ambulatory dysfunction, lung mass, dizziness with history of vertigo, active smoker. HISTORY: Vertigo, rapid heart rate. PAST SURGICAL HISTORY: Right hip surgery, repair of a right torn ACL, 3 C-sections, right knee surgery, bilateral arm surgery. FAMILY HISTORY: The patient's dad had cancer. SOCIAL HISTORY: The patient admits to occasional alcohol use and half pack of cigarettes per day. HOSPITAL COURSE: A 73-year-old female, admitted with severe lower extremity weakness and fall on Monday morning. She apparently falls frequently and has been in physical therapy. She also has a history of vertigo, which increases her fall risk. Due to her frequent falls and vertigo, she is following up with Neurology and ENT as outpatient. On admission, flu was negative, alcohol was 246. CT of the L-spine was negative for acute fractures. Chest x-ray showed consolidative opacity in the right lower lung. CT of the C-spine showed no acute abnormalities. CT of the brain showed no acute abnormalities. CT of the pelvis showed a well-corticated, nondisplaced, likely chronic fracture of S3 vertebral body. No overlying soft tissue edema. CT of the chest showed a mass-like 5.7 cm consolidation in the right lower lobe adjacent to 2.1 cm nodular opacity. Findings may represent malignancy versus focal pneumonia. The patient was started on antibiotics. Pulmonology was also consulted. Interventional Radiology did a CT-guided biopsy on 11/05, which was sent off for Pathology. The patient developed a small pneumothorax after the procedure, but it resolved itself. The patient was sent home the following day with prescriptions for Omnicef, her Zithromax was completed during hospitalization. Pulmonology agrees with discharge. She will follow up with primary care and Pulmonology in 1 to 2 weeks. The patient understands discharge instructions and agrees to plan. Vital signs stable, the patient is afebrile. Dictated by Ashley Purcell NP Santi Sanchez MD [facility]/MODL /[id number]
== END 2019-11-06 15:56 | disposition home health service (06) | DRG 194 ==
LOC: ER 08:55 → ERHOLD 13:00 → MED/SURG3 14:20
PROVIDERS: ADMIT Internal Medicine; ATTEND Internal Medicine
PROC: 0BBF3ZX Excision of Right Lower Lung Lobe, Percutaneous Approach, Diagnostic (ICD-10-PCS; principal; 2019-11-05)
DX: J15.9 Unspecified bacterial pneumonia (principal); M48.58XA Collapsed vertebra, not elsewhere classified, sacral and sacrococcygeal region, initial encounter for fracture; R91.8 Other nonspecific abnormal finding of lung field; F10.129 Alcohol abuse with intoxication, unspecified; Z72.0 Tobacco use; W19.XXXA Unspecified fall, initial encounter; R26.9 Unspecified abnormalities of gait and mobility; F17.200 Nicotine dependence, unspecified, uncomplicated; Z91.81 History of falling; R63.4 Abnormal weight loss; Z68.23 Body mass index [BMI] 23.0-23.9, adult; F17.210 Nicotine dependence, cigarettes, uncomplicated
CPT/HCPCS: 32405; 36415; 70450; 71045; 71250; 72125; 72131; 72192; 74230; 74470; 77012; 80048; 80053; 80061; 80307; 80320; 81001; 82550; 82553; 83735; 84100; 84443; 84484; 85025; 85610; 85651; 85730; 87040; 87071; 87086; 87205; 87400; 88172; 88173; 88305; 93005; 94640; 96360; 99284; J0456; J0696; J2001; J2250; J2405; J3010; J3411; J3475; J7030; J7040; J7042